=== PATIENT | female | born 1990 | race Two or more races ===

== ENCOUNTER 2021-10-17 12:11 | Emergency (ER) | payer MEDICAID, OTHER ==
[~2021-10-17] VITALS: Ht 157.5 cm; Wt 47.6 kg
[2021-10-17] MEDS ORDERED: MECLIZINE HCL 25 MG TAB PO ONE (13:00)
[2021-10-17 13:28] LABS: Basophils # (auto) 0.1 10 ^3/uL (0-0.2); Basophils % (auto) 1.2 % (0.0-2.0); Eosinophils # (auto) 0.1 10 ^3/uL (0-0.8); Eosinophils % (auto) 1.5 % (0.0-7.0); Hematocrit 37.7 % (36.0-46.0); Lymphocytes # (auto) 1.5 10 ^3/uL (0.4-5.4); Lymphocytes % (auto) 26.6 % (10.0-50.0); Mean Corpuscular Hemoglobin 31.4 pg (28.0-32.0); Mean Corpuscular Hgb Conc. 34.6 g/dL (32.0-36.0); Mean Corpuscular Volume 90.8 fL (80.0-100.0); Monocytes # (auto) 0.4 10 ^3/uL (0-1.3); Monocytes % (auto) 6.1 % (0.0-12.0); Neutrophils # (auto) 3.7 10 ^3/uL (1.6-8.6); Neutrophils % (auto) 64.6 % (37.0-80.0); Nucleated Red Blood Cells % 0.1 %; Red Blood Cells 4.16 10^6/uL (4.0-5.20); Red Cell Distribution Width 13.3 % (11.8-14.3); White Blood Cell 5.8 10^3/uL (4.4-10.8)
[2021-10-17 13:57] LABS: Urine Bacteria FEW /hpf (None Seen); Urine Blood 3+ /uL (Negative); Urine Specific Gravity 1.008 (1.001-1.035); Urine WBC 7 /hpf (0 - 5)
[2021-10-17] MEDS ORDERED: NITR-87 PO (14:09)
[2021-10-17] MEDS ORDERED: ONDA-144 PO (14:09)
[2021-10-17] MEDS ORDERED: MECL25TA18 PO (14:09)
[2021-10-17 14:50] LABS: Albumin 3.9 g/dL (3.4-5.0); Calcium 8.8 mg/dL (8.5-10.1); Potassium 3.1 mmol/L (3.5-5.1)
[2021-10-17 14:54] LABS: BUN/Creatinine Ratio 14.3; Bilirubin, Total 0.4 mg/dL (0.2-1.0); Total Protein 7.7 g/dL (6.4-8.2)
[2021-10-17] MEDS ORDERED: diazePAM 2 MG TAB PO ONE (16:00)
[2021-10-17 16:40] VITALS: BP 106/52
== END 2021-10-17 16:51 | disposition home or self-care (01) ==
LOC: ER 12:11 → EDBD 12:11 → ER 16:51
DX: R42 Dizziness and giddiness (principal); N39.0 Urinary tract infection, site not specified
CPT/HCPCS: 36415; 70450; 80053; 81001; 83735; 84443; 85025; 93005; 99285; J8597

== ENCOUNTER 2021-11-14 08:13 | Emergency (ER) | payer MEDICAID ==
[~2021-11-14] VITALS: Ht 157.5 cm; Wt 48.5 kg
[~2021-11-14 08:13] MED LIST: MECL25TA18 PO; NITR-87 PO; ONDA-144 PO
[2021-11-14 08:45] VITALS: BP 107/31
[2021-11-14] MEDS ORDERED: LOPE2TAB99 PO (09:15)
[2021-11-14] MEDS ORDERED: DICY10CA PO (09:15)
== END 2021-11-14 09:24 | disposition home or self-care (01) ==
LOC: ER 08:13
DX: K52.9 Noninfective gastroenteritis and colitis, unspecified (principal)